=== PATIENT | female | born 1960 | race Asian ===

== ENCOUNTER 2017-11-06 09:54 | Emergency (ER) | payer SELFPAY ==
[~2017-11-06] VITALS: Ht 162.6 cm; Wt 68.0 kg
[2017-11-06] MEDS ORDERED: IBUPROFEN 600MG TABLET PO ONE (12:00)
[2017-11-06 13:42] VITALS: BP 136/82
== END 2017-11-06 13:45 | disposition home or self-care (01) ==
LOC: ER 09:54
DX: S22.42XA Multiple fractures of ribs, left side, initial encounter for closed fracture (principal); V43.62XA Car passenger injured in collision with other type car in traffic accident, initial encounter; Y93.89 Activity, other specified; Y92.488 Other paved roadways as the place of occurrence of the external cause
CPT/HCPCS: 71101; 93005; 99284